=== PATIENT | female | born 1960 ===

== ENCOUNTER 2025-05-01 11:35 | Emergency (ER) | payer MEDICAID ==
[2025-05-01 12:43] LABS: APPEARANCE,URINE CLEAR (CLEAR); GLUCOSE,URINE NEGATIVE (NEGATIVE); OCCULT BLOOD,URINE TRACE-INTACT (NEGATIVE)
[2025-05-01 12:58] LABS: BASOPHILS ABSOLUTE AUTO 0.09 K/uL (0.00-0.10); BASOPHILS PERCENT AUTO 1.2 % (0.1-1.3); EOSINOPHILS ABSOLUTE AUTO 0.22 K/uL (0.00-0.40); EOSINOPHILS PERCENT AUTO 3.0 % (0.0-5.4); IMMATURE GRAN ABSOLUTE AUTO 0.06 K/uL (0.00-0.23); IMMATURE GRAN PERCENT AUTO 0.8 % (0.0-0.7); LYMPHOCYTES ABSOLUTE AUTO 1.72 K/uL (0.8-3.3); LYMPHOCYTES PERCENT AUTO 23.7 % (11.4-47.7); MONOCYTES ABSOLUTE AUTO 0.72 K/uL (0.20-0.90); MONOCYTES PERCENT AUTO 9.9 % (3.3-12.6); NEUTROPHILS ABSOLUTE AUTO 4.44 K/uL (1.0-7.6); NEUTROPHILS PERCENT AUTO 61.4 % (40.0-78.1); PLATELET COUNT,PLT 219 K/uL (130-375); RED BLOOD CELL COUNT 3.74 M/uL (3.77-5.24); WHITE BLOOD CELL COUNT,WBC 7.3 K/uL (3.2-11.0)
[2025-05-01 13:03] LABS: SQUAMOUS EPITHELIAL CELLS,UR FEW /HPF; UROTHELIAL CELLS,URINE NOT SEEN /HPF
[2025-05-01 13:22] LABS: A/G RATIO 1.1 (1.2-2.2); ALANINE AMINOTRANSFERASE,ALT 21 U/L (12-78); ASPARTATE AMNIOTRANSFERASE,AST 25 U/L (15-37); BILIRUBIN TOTAL 0.5 mg/dL (0.2-1.0); BLOOD UREA NITROGEN,BUN 20 mg/dL (7-18); CARBON DIOXIDE,CO2 33 mmol/L (21-32); CHLORIDE,CL 103 mmol/L (100-108); CREATININE 1.0 mg/dL (0.6-1.0); ESTIMATED GFR 63 mL/min (>60); GLUCOSE RANDOM 132 mg/dL (74-106); POTASSIUM,K 3.2 mmol/L (3.6-5.2); PROTEIN TOTAL,TP 6.3 g/dL (6.4-8.2); SODIUM,NA 142 mmol/L (140-148)
[2025-05-01] MEDS: Potassium Chloride 10 MEQ Cap.ER PO ONE (15:53)
[2025-05-01] MEDS: LORazepam 2 MG/ML SDV IVPUSH ONE (20:40)
[2025-05-02] MEDS: LORazepam 2 MG/ML SDV IVPUSH ONE (09:02)
[2025-05-02] MEDS: LORazepam 2 MG/ML SDV IM ONE (09:08)
== END 2025-05-02 09:28 ==
LOC: JP.ED 11:35
DX: E03.9 Hypothyroidism, unspecified (principal); E87.6 Hypokalemia; Z91.148 Patient's other noncompliance with medication regimen for other reason; Z79.899 Other long term (current) drug therapy; Z88.1 Allergy status to other antibiotic agents; Z88.0 Allergy status to penicillin; Z88.8 Allergy status to other drugs, medicaments and biological substances; Z91.018 Allergy to other foods
CPT/HCPCS: 36415; 70450; 71045; 80053; 81001; 84443; 85025; 96372; 96374; 99285; J0515; J2060; J7030